=== PATIENT | female | born 1990 | race Caucasian/White ===

== ENCOUNTER 2021-07-20 11:51 | Emergency (ER) | payer SELFPAY ==
[~2021-07-20] VITALS: Ht 170.2 cm; Wt 99.8 kg
[2021-07-20] MEDS ORDERED: CASIRIVIMAB/IMDEVIMAB 10 ML in SODIUM CHLORIDE 0.9% 100 ML IV ONE (12:45)
[2021-07-20 15:13] VITALS: BP 136/71
== END 2021-07-20 14:16 | disposition home or self-care (01) ==
LOC: ER 13:03
DX: R06.02 Shortness of breath (principal); U07.1 COVID-19; G35 Multiple sclerosis
CPT/HCPCS: 99283; J7050